=== PATIENT | female | born 1980 | race Hispanic/Latino ===

== ENCOUNTER → 2023-09-06 | Day surgery (SDC) | payer BC ==
--- NOTE | 2023-09-06 10:05 | RAD REPORT ---
EXAM DESCRIPTION: US - Guided FNA Non Breast - 09/06/2023 9:49 am CLINICAL HISTORY: E04.1 COMPARISON: No comparisons FINDINGS: Preoperative diagnosis: Right thyroid nodule. Post operative diagnosis: Same. Conscious Sedation: None Fluoroscopy time: None Contrast used: None Estimated blood loss: Minimal Specimens:5 x 25 gauge FNA samples The was prepped and draped in the usual sterile fashion. 1% lidocaine was infiltrated into the subcu taneous tissues for local anesthesia. Real time ultrasound scanning of the neck demonstrated 1 cm rig ht thyroid nodule. Under ultrasound guidance, using 25 gauge FNA needles, 5 specimens were obtained o f this lesion and sent to pathology for evaluation. There were no complications. IMPRESSION: Technically successful right thyroid nodule FNA procedure under ultrasound guidance.
== END ==
LOC: FNA 08:35
PROVIDERS: ATTEND Otolaryngology Facial Plastic Surgery
PROC: 0GBH3ZX Excision of Right Thyroid Gland Lobe, Percutaneous Approach, Diagnostic (ICD-10-PCS; principal; 2023-09-06)
DX: E04.1 Nontoxic single thyroid nodule (principal)
CPT/HCPCS: 88162